=== PATIENT | female | born 1955 | race Caucasian/White ===

== ENCOUNTER 2023-07-27 14:26 | Outpatient (CLI) | payer MEDICARE, MEDICAID ==
[~2023-07-27 14:26] MED LIST: CHLO118M PO
[2023-07-27] MEDS ORDERED: iohexol 300mg/ml 100ml inj. ONE (14:46)
== END 2023-07-27 23:59 | disposition home or self-care (01) ==
LOC: RAD 14:26
PROVIDERS: ATTEND Family Medicine
DX: R91.8 Other nonspecific abnormal finding of lung field (principal); R05.9 Cough, unspecified; Z90.49 Acquired absence of other specified parts of digestive tract
CPT/HCPCS: 71260; J3490; Q9967